=== PATIENT | female | born 1955 | race Caucasian/White ===

== ENCOUNTER 2018-09-30 09:50 | Inpatient (IN) | payer OTHER ==
[~2018-09-30] VITALS: Ht 149.9 cm; Wt 56.2 kg
[2018-11-04] MEDS ORDERED: FORTAMET1000 MG PO (14:31)
[2018-11-04] MEDS ORDERED: ZOCOR40 MG PO (14:32)
[2018-11-04] MEDS ORDERED: IRBESARTAN-HCT1 EACH PO (14:32)
== END 2018-11-12 18:05 | disposition home or self-care (01) | DRG 331 ==
LOC: SURG 11-09 05:59 → O/R 11-09 05:59 → SURH 11-09 12:00 → SURG 11-09 12:05 → SURH 11-09 12:30 → SURG 11-12 18:05
PROVIDERS: ADMIT Colon & Rectal Surgery
PROC: 07TC4ZZ Resection of Pelvis Lymphatic, Percutaneous Endoscopic Approach (ICD-10-PCS; 2018-11-09)
PROC: 0DTU4ZZ Resection of Omentum, Percutaneous Endoscopic Approach (ICD-10-PCS; 2018-11-09)
PROC: 0DJD8ZZ Inspection of Lower Intestinal Tract, Via Natural or Artificial Opening Endoscopic (ICD-10-PCS; 2018-11-09)
PROC: 0DTL4ZZ Resection of Transverse Colon, Percutaneous Endoscopic Approach (ICD-10-PCS; principal; 2018-11-09 17:00)
DX: C18.5 Malignant neoplasm of splenic flexure (principal); I11.9 Hypertensive heart disease without heart failure; E11.9 Type 2 diabetes mellitus without complications; E78.00 Pure hypercholesterolemia, unspecified; D50.8 Other iron deficiency anemias; E53.8 Deficiency of other specified B group vitamins

== ENCOUNTER 2018-11-08 10:26 | Day surgery (SDC) | payer OTHER ==
[~2018-11-08 10:26] MED LIST: FORTAMET1000 MG PO; IRBESARTAN-HCT1 EACH PO; ZOCOR40 MG PO
== END 2018-11-08 15:13 | disposition home or self-care (01) ==
LOC: AMB-ENDOS 10:26
DX: K64.1 Second degree hemorrhoids (principal)

== ENCOUNTER 2019-11-11 05:45 | Day surgery (SDC) | payer OTHER | END 2019-11-11 09:50 | disposition home or self-care (01) | LOC: AMB-ENDOS 05:45 → CIR.AMB 12:00 | DX: K62.89 Other specified diseases of anus and rectum (principal); K64.1 Second degree hemorrhoids ==

== ENCOUNTER 2020-03-28 05:45 | Day surgery (SDC) | payer OTHER ==
[~2020-03-28 05:45] MED LIST changes: +ATACAND HCT 161 EACH PO; +B12 ACTIVE1000 MCG PO; +FOLIC ACID20 MG PO; +SYNALAR60 ML TOP
[2020-03-28] MEDS ORDERED: NEURONTIN600 M1 PO (10:15)
[2020-03-28] MEDS ORDERED: PERCOCET 5-3251 EACH PO (10:15)
[2020-03-28] MEDS ORDERED: COLACE100 MG PO (10:16)
== END 2020-03-28 14:05 | disposition home or self-care (01) ==
LOC: CIR.AMB 05:45
PROVIDERS: ATTEND Surgery
DX: K43.0 Incisional hernia with obstruction, without gangrene (principal)

== ENCOUNTER 2020-11-09 10:05 | Day surgery (SDC) | payer OTHER ==
[~2020-11-09 10:05] MED LIST changes: +COLACE100 MG PO; +NEURONTIN600 M1 PO; +PERCOCET 5-3251 EACH PO
== END 2020-11-09 17:00 | disposition home or self-care (01) ==
LOC: AMB-ENDOS 10:05
PROVIDERS: ATTEND Colon & Rectal Surgery
DX: K62.89 Other specified diseases of anus and rectum (principal); K64.1 Second degree hemorrhoids; Z20.828 Contact with and (suspected) exposure to other viral communicable diseases